=== PATIENT | male | born 1955 | race Caucasian/White ===

== ENCOUNTER 2017-08-06 20:54 | Emergency (ER) | payer OTHER ==
[~2017-08-06] VITALS: Ht 188 cm; Wt 109.0 kg
[~2017-08-06 20:54] MED LIST: AMLO5TAB22 PO; ASPI81TA82 PO; ATOR20TA PO; CITA20TA4 PO; LISI-363 PO; NIAC500 PO; OXYC1SOL5 PO; TAB-TAB PO; TAMS0.4C67 PO
[2017-08-06 20:56] VITALS: BP 174/84; PULSE 74; RESP 16; TEMP 98.3; O2SAT 98
[2017-08-06] MEDS ORDERED: AMLO5TAB2 PO (21:26)
[2017-08-06] MEDS ORDERED: CITA40TA4 PO (21:26)
[2017-08-06] MEDS ORDERED: ASPI-516 CHEW (21:26)
[2017-08-06] MEDS ORDERED: LISI40TA PO (21:26)
[2017-08-06] MEDS ORDERED: ATOR20TA15 PO (21:26)
[2017-08-06] MEDS ORDERED: MULT-65 PO (21:26)
--- NOTE | 2017-08-06 21:44 | PD ---
HPI Chief Complaint: Back/ Neck Pain or Injury Time Seen by Provider: 21:34 Travel History International Travel<30 days: No Contact w/Intl Traveler<30days: No Traveled to known affect area: No History of Present Illness HPI 62-year-old male with history of atrial fibrillation status post cardiac ablation, hypertension. He presents for evaluation of lower back pain. He reports that 3 weeks ago he was helping to change tires on a truck when he began feeling left-sided lower back pain. The pain is resisted since then, worse today after using the bathroom, which prompted evaluation. Pain is a sharp pain in left lower part of his back that is worse with movement. He denies flank pain, abdominal pain, nausea or vomiting, fevers or chills, recent weight loss, radicular symptoms, bowel or bladder incontinence, saddle anesthesia. He tried taking Aleve and today he took a leftover hydrocodone tablet that he had from previous injury with minimal relief. He has no other complaints at this time. PFSH Past Medical History Hx Anticoagulant Therapy: Yes (ASA) Asthma: No Atrial Fibrillation: Yes (HX) Blood Disorders: No Anxiety: No Depression: No Heart Rhythm Problems: Yes (atrial fib) Cancer: No Cardiovascular Problems: Yes (htn, atrial fib) High Cholesterol: Yes Chemotherapy: No Chest Pain: No Congestive Heart Failure: No COPD: No Diabetes: No Diminished Hearing: No Endocrine: No Gastrointestinal Disorders: No Glaucoma: No Genitourinary: No Hepatitis: No Hiatal Hernia: No Hypertension: Yes Immune Disorder: No Inguinal Hernia: Yes (repaired) Musculoskeletal: No Neurologic: No Psychiatric: No Reproductive: No Respiratory: Yes Integumentary: No Radiation Therapy: No Sleep Apnea: Yes (wears c-pap) Thyroid Disease: No Tetanus Vaccination: Unknown Past Surgical History Abdominal Surgery: Yes (gastric bypass) Cardiac Surgery: Yes (ablation X 1) Thoracic Surgery: No Other Surgery: Yes (hernia repair, prostate bx with right testicle removed, gastric bypass, abl) Social History Alcohol Use: Yes (OCC) Tobacco Use: No (QUIT 1983) Substance Use: No Allergies-Medications (Allergen,Severity, Reaction): Coded Allergies: Sulfa (Sulfonamide Antibiotics) (Unverified Allergy, Severe, 08/06/17) Reported Meds & Prescriptions Reported Meds & Active Scripts Active Baclofen 10 Mg Tab 10 Mg PO TID 7 Days Lidocaine Patch 12 HR (Lidocaine) 5 % Patch 1 Patch TOPICAL DAILY PRN Remove patch after 12 hours Reported Multi-Vitamin Daily (Multiple Vitamin) 1 Tab Tab 1 Tab PO DAILY Atorvastatin (Atorvastatin Calcium) 20 Mg Tab 20 Mg PO HS Citalopram (Citalopram Hydrobromide) 40 Mg Tab 40 Mg PO DAILY Lisinopril 40 Mg Tab 40 Mg PO BID Aspirin 81 Mg Chew 81 Mg CHEW DAILY Amlodipine (Amlodipine Besylate) 5 Mg Tab 5 Mg PO DAILY Atorvastatin 20 mg tab (Atorvastatin Calcium) 20 Mg Tab 1 Tab PO HS Multivitamin (Multivitamins) 1 Tab Tab 1 Tab PO DAILY Lisinopril 20 mg (Lisinopril) 20 Mg Tab 40 Mg PO BID Amlodipine Besylate 5 mg (Amlodipine Besylate) 5 Mg Tab 5 Mg PO BID Aspir-81 (Aspirin) 81 Mg Tab 81 Mg PO DAILY Citalopram Hydrobromide 20 Mg Tab 40 Mg PO DAILY Review of Systems Except as stated in HPI: all other systems reviewed are Neg Physical Exam Narrative GENERAL: Well-developed well-nourished male in no acute distress SKIN: Warm and dry. HEAD: Atraumatic. Normocephalic. EYES: Pupils equal and round. No scleral icterus. No injection or drainage. ENT: No nasal bleeding or discharge. Mucous membranes pink and moist. NECK: Trachea midline. No JVD. CARDIOVASCULAR: Regular rate and rhythm. No murmur appreciated. RESPIRATORY: No accessory muscle use. Clear to auscultation. Breath sounds equal bilaterally. GASTROINTESTINAL: Abdomen soft, non-tender, nondistended. Hepatic and splenic margins not palpable. MUSCULOSKELETAL: No obvious deformities. No clubbing. No cyanosis. No edema. No reproducible tenderness to palpation along the midline spine, paravertebral musculature, no CVA tenderness. 5 out of 5 muscle strength in lower extremities bilaterally. NEUROLOGICAL: Awake and alert. No obvious cranial nerve deficits. Motor grossly within normal limits. Normal speech. PSYCHIATRIC: Appropriate mood and affect; insight and judgment normal. Data Data Last Documented VS Vital Signs Date Time Temp Pulse Resp B/P (MAP) Pulse Ox O2 Delivery O2 Flow Rate FiO2 08/06/17 20:56 98.3 74 16 174/84 (114) 98 Room Air Orders Orders Ketorolac Inj (Toradol Inj) (08/06/17 21:45) Orphenadrine Inj (Norflex Inj) (08/06/17 21:45) Spine, Lumbar - Ltd (Ap & Lat) (08/06/17 ) Ed Discharge Order (08/06/17 22:37) [facility] Medical Decision Making Medical Screen Exam Complete: Yes Emergency Medical Condition: Yes Medical Record Reviewed: Yes Differential Diagnosis Muscle strain, muscle spasm, compression fracture, metastatic malignancy, herniated nucleus pulposus, spinal stenosis Narrative Course 62-year-old male for left-sided lower back pain which started 3 weeks ago after helping to change tires on the truck. Physical examination is reassuring with no obvious abnormalities, no focal deficits. The patient will be given Toradol and Norflex. Lumbar spine x-ray reveals degenerative changes no acute findings. His examination and history are consistent with lumbar strain. The patient will be discharged with a short course of baclofen and Lidoderm patches. Diagnosis Primary Impression: Lumbar strain Additional Instructions: Medication as prescribed. Do not drive or drink alcohol when taking baclofen. Take [id number] ibuprofen as needed for pain per dosing instructions on the bottle, take with meals. Avoid strenuous activity, heavy lifting. Follow- up with primary care physician in 2 weeks. Return for any emergent medical conditions. Med/Other Pt SpecificInfo: Prescription(s) given Scripts Baclofen (Baclofen) 10 Mg Tab 10 MG PO TID for Muscle Spasm for 7 Days, TAB 0 Refills Prov: Cricket Moreno MD 08/06/17 Lidocaine Patch 12 HR (Lidocaine Patch 12 HR) 5 % Patch 1 PATCH TOPICAL DAILY Y for PAIN, #1 BOX 1 Refill Remove patch after 12 hours Prov: Cricket Moreno MD 08/06/17 Disposition: 01 DISCHARGE HOME Condition: Stable Min Altamirano Aug 06, 2017 21:44
[2017-08-06] MEDS ORDERED: ORPHENADRINE INJ 60 MG/2 ML AMP IM ONE (21:45)
[2017-08-06] MEDS ORDERED: KETOROLAC TROMETHAMINE 60 MG/2 ML (IM) VIAL IM ONE (21:45)
--- NOTE | 2017-08-06 22:14 | RADRPT ---
EXAM DATE/TIME: 08/06/2017 21:48 [facility] COMPARISON: No previous studies available for comparison. INDICATIONS : Lower back pain on and off for the past two weeks. MEDICAL HISTORY : None. SURGICAL HISTORY : None. ENCOUNTER: Initial ACUITY: 2 weeks PAIN SCORE: 10/10 LOCATION: Lower back. FINDINGS: There is moderate degenerative disc disease. No fracture or subluxation. Mild facet arthropathy. No b gage destructive change. CONCLUSION: 1. Moderate degenerative disc disease. No acute findings. Urbano Dietrich MD on August 06, 2017 at 22:12 Board Certified Radiologist. This report was verified electronically.
[2017-08-06] MEDS ORDERED: BACL10TA PO (22:31)
[2017-08-06] MEDS ORDERED: LIDO1PAD52 TOPICAL (22:31)
== END 2017-08-06 22:46 | disposition home or self-care (01) ==
LOC: NEPD 20:54
DX: S39.012A Strain of muscle, fascia and tendon of lower back, initial encounter (principal); M51.36 Other intervertebral disc degeneration, lumbar region; I48.91 Unspecified atrial fibrillation; I10 Essential (primary) hypertension; E78.00 Pure hypercholesterolemia, unspecified; X58.XXXA Exposure to other specified factors, initial encounter; Z79.82 Long term (current) use of aspirin; Z79.899 Other long term (current) drug therapy; Z88.2 Allergy status to sulfonamides
CPT/HCPCS: 72100; 96372; 99284; J1885; J2360

== ENCOUNTER 2017-08-22 01:07 | Emergency (ER) | payer OTHER ==
[~2017-08-22] VITALS: Ht 188 cm; Wt 109.0 kg
[~2017-08-22 01:07] MED LIST changes: +AMLO5TAB2 PO; +ASPI-516 CHEW; +ATOR20TA15 PO; +BACL10TA PO; +CITA40TA4 PO; +LIDO1PAD52 TOPICAL; +LISI40TA PO; +MULT-65 PO; -NIAC500 PO; -OXYC1SOL5 PO; -TAMS0.4C67 PO
[2017-08-22 01:09] VITALS: BP 135/76; PULSE 77; RESP 16; TEMP 98.8; O2SAT 96
--- NOTE | 2017-08-22 01:45 | PD ---
HPI Chief Complaint: Injury Time Seen by Provider: 01:35 Travel History International Travel<30 days: No Contact w/Intl Traveler<30days: No Traveled to known affect area: No History of Present Illness HPI 62-year-old male presents for evaluation after mechanical fall. He reports that a few days ago he was celebrating [place] at a relative's house in [place]. He reports that he tripped while he was playing with [employer] guns in both of his hands. He reports that he landed on his left hand and also hit his nose on the ground. Since then he has had soft tissue swelling and discomfort in his left hand overlying the fifth metacarpal. He has also had some bruising and discomfort to the bridge of the nose as well as mild soreness in the shoulders. Initially he had some epistaxis but that resolved. He takes a baby aspirin daily basis but denies any other anticoagulation. He returned from [place] today and decided to come for evaluation of these issues. He has no other complaints at this time. PFSH Past Medical History Hx Anticoagulant Therapy: Yes Asthma: No Atrial Fibrillation: Yes (HX) Blood Disorders: No Anxiety: No Depression: No Heart Rhythm Problems: Yes (atrial fib) Cancer: No Cardiovascular Problems: Yes (A-FIB, ABLATION) High Cholesterol: Yes Chemotherapy: No Chest Pain: No Congestive Heart Failure: No COPD: No Diabetes: No Diminished Hearing: No Endocrine: No Gastrointestinal Disorders: No Glaucoma: No Genitourinary: No Hepatitis: No Hiatal Hernia: No Hypertension: Yes Immune Disorder: No Inguinal Hernia: Yes (repaired) Musculoskeletal: No Neurologic: No Psychiatric: No Reproductive: No Respiratory: Yes Integumentary: No Radiation Therapy: No Sleep Apnea: Yes (wears c-pap) Thyroid Disease: No Tetanus Vaccination: > 5 Years Influenza Vaccination: No Past Surgical History Abdominal Surgery: Yes (gastric bypass) Cardiac Surgery: Yes (ablation X 1) Thoracic Surgery: No Other Surgery: Yes (hernia repair, prostate bx with right testicle removed, gastric bypass, abl) Social History Alcohol Use: Yes (OCC) Tobacco Use: No (QUIT 1983) Substance Use: No Allergies-Medications (Allergen,Severity, Reaction): Coded Allergies: Sulfa (Sulfonamide Antibiotics) (Unverified Allergy, Severe, 08/22/17) Reported Meds & Prescriptions Reported Meds & Active Scripts Active Baclofen 10 Mg Tab 10 Mg PO TID 7 Days Lidocaine Patch 12 HR (Lidocaine) 5 % Patch 1 Patch TOPICAL DAILY PRN Remove patch after 12 hours Reported Multi-Vitamin Daily (Multiple Vitamin) 1 Tab Tab 1 Tab PO DAILY Atorvastatin (Atorvastatin Calcium) 20 Mg Tab 20 Mg PO HS Citalopram (Citalopram Hydrobromide) 40 Mg Tab 40 Mg PO DAILY Lisinopril 40 Mg Tab 40 Mg PO BID Aspirin 81 Mg Chew 81 Mg CHEW DAILY Amlodipine (Amlodipine Besylate) 5 Mg Tab 5 Mg PO DAILY Review of Systems Except as stated in HPI: all other systems reviewed are Neg Physical Exam Narrative GENERAL: Well-developed well-nourished male in no acute distress SKIN: Warm and dry. Mild abrasion noted to the bridge of the nose. HEAD: Atraumatic. Normocephalic. EYES: Pupils equal and round. No scleral icterus. No injection or drainage. ENT: No nasal bleeding or discharge. Mucous membranes pink and moist. There is slight discomfort with palpation along the bridge of the nose. There is no epistaxis or septal hematoma. NECK: Trachea midline. No JVD. CARDIOVASCULAR: Regular rate and rhythm. No murmur appreciated. RESPIRATORY: No accessory muscle use. Clear to auscultation. Breath sounds equal bilaterally. MUSCULOSKELETAL: Some soft tissue swelling is noted to the left hand. There is some tenderness to palpation overlying the fifth metacarpal left hand. The patient maintains full range of motion. NEUROLOGICAL: Awake and alert. No obvious cranial nerve deficits. Motor grossly within normal limits. Normal speech. Data Data Last Documented VS Vital Signs Date Time Temp Pulse Resp B/P (MAP) Pulse Ox O2 Delivery O2 Flow Rate FiO2 08/22/17 01:09 98.8 77 16 135/76 (95) 96 Room Air Orders Orders Nasal Bones (Min 3 Vws) (08/22/17 ) Hand, Complete ([id number]) (08/22/17 ) Ice/Cold Pack (08/22/17 01:42) Splint Or Brace Apply/Monitor (08/22/17 02:10) Ed Discharge Order (08/22/17 02:19) [facility] Medical Decision Making Medical Screen Exam Complete: Yes Emergency Medical Condition: Yes Medical Record Reviewed: Yes Differential Diagnosis Fifth metacarpal fracture, sprain, contusion Narrative Course X-ray imaging of the left hand does reveal a proximal fifth metacarpal fracture. The patient will be placed in an ulnar gutter splint and he will be referred to hand specialty follow-up. He declines pain medication. Diagnosis Primary Impression: Fracture of fifth metacarpal bone Additional Impression: Nasal abrasion Referrals: Manjit Ojeda MD Additional Instructions: Follow-up with a hand specialist such as Dr. Ojeda in the next few days. Do not remove the splint. Return for any emergent medical conditions. Med/Other Pt SpecificInfo: Orthopedic Instructions Disposition: 01 DISCHARGE HOME Condition: Stable Min Altamirano Aug 22, 2017 01:45
--- NOTE | 2017-08-22 02:05 | RADRPT ---
EXAM DATE/TIME: 08/22/2017 01:50 [facility] COMPARISON: No previous studies available for comparison. INDICATIONS : Left hand pain on lateral side post fall. MEDICAL HISTORY : None. SURGICAL HISTORY : None. ENCOUNTER: Initial ACUITY: 2 days PAIN SCORE: 7/10 LOCATION: Left hand. FINDINGS: There is a fracture of the fifth proximal metacarpal bone with slight displacement and angulation. CONCLUSION: Fifth proximal metacarpal fracture. Minal Anderson MD on August 22, 2017 at 2:03 Board Certified Radiologist. This report was verified electronically.
--- NOTE | 2017-08-22 02:13 | RADRPT ---
EXAM DATE/TIME: 08/22/2017 01:53 [facility] COMPARISON: No previous studies available for comparison. INDICATIONS : Nasal bone pain post fall. MEDICAL HISTORY : None. SURGICAL HISTORY : None. ENCOUNTER: Initial ACUITY: 2 days PAIN SCORE: 3/10 LOCATION: nasal bones. FINDINGS: No definite fractures, or dislocations are identified. No definite lytic or sclerotic lesion is seen . CONCLUSION: Unremarkable study. Minal Anderson MD on August 22, 2017 at 2:12 Board Certified Radiologist. This report was verified electronically.
== END 2017-08-22 02:57 | disposition home or self-care (01) ==
LOC: NEPD 01:07
DX: S62.397A Other fracture of fifth metacarpal bone, left hand, initial encounter for closed fracture (principal); S00.31XA Abrasion of nose, initial encounter; E78.00 Pure hypercholesterolemia, unspecified; I10 Essential (primary) hypertension; W01.0XXA Fall on same level from slipping, tripping and stumbling without subsequent striking against object, initial encounter; Y93.89 Activity, other specified; Y92.009 Unspecified place in unspecified non-institutional (private) residence as the place of occurrence of the external cause; Z79.82 Long term (current) use of aspirin
CPT/HCPCS: 29125; 70160; 73130